=== PATIENT | female | born 1980 | race Caucasian/White ===

== ENCOUNTER 2017-06-22 10:34 | Inpatient (IN) | payer OTHER, SELFPAY ==
--- OUTSIDE RECORDS SUMMARY | 2017-06-22 10:37 | XMS | Clinical Summary ---
:1980 Author Organization [facility] Address [address] [place] [address] Phone Care Team Providers Name Role Phone , Primary Care Provider Unavailable Allergies No Known Allergies Current Medications Not on file Active Problems Not on file Social History Tobacco Use Types Packs/Day Years Used Date Never Assessed Sex Assigned at Date Recorded Not on file Last Filed Vital Signs Vital Sign Reading Time Taken Blood Pressure 132/61 12/09/2016 3:29 PM [employer]FACE [employer] OUT TECHNICIAN Pulse 72 12/09/2016 3:29 PM SURFACE LAY OUT TECHNICIAN Temperature 36.7 C (98 F) 12/09/2016 3:29 PM SURFACE LAY OUT TECHNICIAN Respiratory Rate 16 12/09/2016 3:29 PM SURFACE LAY OUT TECHNICIAN Oxygen Saturation 98% 12/09/2016 3:29 PM SURFACE LAY OUT TECHNICIAN Inhaled Oxygen Concentration - - Weight 122.5 kg (270 lb) 12/09/2016 3:29 PM SURFACE LAY OUT TECHNICIAN Height 175.3 cm (5' 9.02") 12/09/2016 3:29 PM SURFACE LAY OUT TECHNICIAN Body Mass Index 39.85 12/09/2016 3:29 PM SURFACE LAY OUT TECHNICIAN Plan of Treatment Not on file Results Not on filefrom Last 3 Months
[2017-06-22 11:14] LABS: #Basophils 0.1 thou/uL (0.0-0.2); #Eosinphils 0.2 thou/uL (0.0-0.7); #Lymphocytes 2.2 thou/uL (1.20-3.40); #Monocytes 0.6 thou/uL (0.11-0.59); #Neutrophils 6.3 thou/uL (1.40-6.50); %Basophils 0.7 % (0.0-1.0); %Eosinophils 2.3 % (0.0-10.0); %Lymphocytes 23.2 % (21.0-51.0); %Monocytes 6.6 % (0.0-10.0); Hematocrit 41.3 % (36.0-47.0); Mean Platelet Volume 7.7 fL (7.4-10.4); Red Blood Cell (RBC) Count 4.64 mill/uL (4.20-5.40); White Blood Cell (WBC) Count 9.4 thou/uL (4.8-10.8)
--- NOTE | 2017-06-22 11:24 | RAD ---
PORTABLE AP CHEST X-RAY 06/22/2017 HISTORY: Chest pain. Recent surgery on left foot on June 01, 2017. The patient was diagnosed recently with DVT in the right lower extremity, as well as a pulmonary embolus. COMPARISON: 06/17/2017 FINDINGS: The cardiac silhouette and pulmonary vasculature are within normal limits. Linear densities are see n at the medial right lung base, which may be related to superimposition of structures or possibly a telectasis. The lungs are otherwise clear. No other interval change from the prior exam. IMPRESSION: No acute cardiopulmonary process. POS: [facility]
[2017-06-22 11:38] LABS: Troponin I Less than 0.010 ng/mL (< 0.028)
[2017-06-22 11:43] LABS: ALT (SGPT) 17 U/L (8-55); AST (SGOT) 13 U/L (5-34); Alkaline Phosphatase 73 U/L (40-150); Anion Gap 11 mmol/L (10-20); BUN (Urea Nitrogen) 12 mg/dL (7.0-18.7); Bilirubin, Total 0.4 mg/dL (0.2-1.2); Calc. Creatinine Clearance 0 mL/min (70-130); Calcium 9.2 mg/dL (7.8-10.44); Carbon Dioxide 22 mmol/L (22-29); Chloride 107 mmol/L (98-107); Estimated GFR-MDRD 88; Protein, Total 6.8 g/dL (6.0-8.3)
[2017-06-22] MEDS ORDERED: Morphine 4 MG/ML Carpuject ONE (12:21)
[2017-06-22] MEDS ORDERED: Enoxaparin Sodium 100 MG/ML SYRINGE ONE (12:21)
[2017-06-22] MEDS ORDERED: Pepto Bismol Chew TAB PO PRN (13:10)
[2017-06-22] MEDS ORDERED: Acetaminophen 325 MG TAB PO PRN (13:10)
[2017-06-22] MEDS ORDERED: Milk Of Magnesia 30 ML UDCUP PO PRN (13:10)
--- NOTE | 2017-06-22 13:46 | PDOC.EVN ---
Event Note - Event Note Event Note: Admission/Discharge (ALL IN ONE NOTE, PATIENT WAS ADMITTED AND DISCHARGED FROM THE [facility] [id number]
--- NOTE | 2017-06-22 14:00 | CON ---
DATE OF CONSULTATION: 06/22/2017 CONSULTING PHYSICIAN: Emergency room physician. I was asked to see Ms. Lancaster regarding hemoptysis. She is a 37-year-old female, who was hospitalized last week with a massive pulmonary embolism on both sides. She was anticoagulated with Xarelto and discharged over the weekend. Over the last 36 hours, she has developed some hemoptysis, which she c haracterizes as regular sputum production mixed with some blood. None of this hemoptysis has been m assive. She has also developed some pleuritic chest pain. The pain from her left lower extremity D VT has resolved. She is currently taking Xarelto a dose of 15 mg twice daily, which is to complete 21 days before tra nsitioning to the 20 mg daily dose. She is taking Lortab for pain. PHYSICAL EXAMINATION: VITAL SIGNS: Her O2 sat was 98% on room air, blood pressure was 120/70, respiratory rate 18. She w as in no acute distress. HEENT: Unremarkable. NECK: Without adenopathy or JVD. LUNGS: Clear. CARDIAC: S1, S2, is regular, without murmur. ABDOMEN: Soft, nontender. EXTREMITIES: No edema. LABORATORY DATA AND X-RAY FINDINGS: Her chest x-ray showed no mass, effusion or infiltrate. Her CB C and BMP were normal except for slightly elevated glucose. ASSESSMENT: Hemoptysis - this would be expected after a major pulmonary embolism. There is no reas on to discontinue her anticoagulation at this time. She was told to come back to the emergency room if she ever had massive hemoptysis. PLAN: She has an appointment to see me in the office in 2 days. I told her to continue the current Xarelto dose. For pleuritic chest pain, she is being prescribed a Medrol Dosepak and nonsteroidal anti-inflammatory medication by the Hospitalist.
[2017-06-22] MEDS ORDERED: Rivaroxaban 15 MG TAB PO SCH (17:00)
--- NOTE | 2017-06-22 20:31 | HP ---
HISTORY AND PHYSICAL AND DISCHARGE SUMMARY DATE OF ADMISSION AND DISCHARGE: 06/22/2017 CHIEF COMPLAINT: Shortness of breath. HISTORY OF PRESENT ILLNESS: This is a 37-year-old female who was recently diagnosed with DVT/PE, on hospitalization from 06/17/2017 to 06/19/2017 and sent home on Xarelto, who presents with shortness of breath. The patient was seen by Dr. Frost last time and I did discuss the case with Dr. Elsie chowdhury in the patient's room while she was in the emergency room. We felt that the patient was over exe rting herself which was causing an exacerbation of her underlying pleuritic chest pain and shortness of breath. The patient denied any fevers, chills or new rashes. REVIEW OF SYSTEMS: A 14 point review of systems is negative except as otherwise indicated above in the HPI. PAST MEDICAL HISTORY: DVT/PE, recently placed on Xarelto as above. PAST SURGICAL HISTORY: 1. Left ankle fracture on 05/11/2016 status post multiple surgeries. 2. Appendectomy. 3. Cholecystectomy. 4. Tubal ligation. 5. Bilateral knee surgery for meniscal tear. 6. Adenoidectomy. FAMILY HISTORY: Positive for diabetes, COPD, rheumatoid arthritis and lupus. SOCIAL HISTORY: The patient denies any tobacco, alcohol or illicit drug use recently. ALLERGIES AND MEDICATIONS: Please refer the chart for details These have been reviewed. PHYSICAL EXAMINATION: VITAL SIGNS: Reviewed, please refer to chart for details. GENERAL: Patient was sitting up in bed when I entered the room in no acute distress in terms of her breathing. HEENT: Normocephalic, atraumatic. NECK: Supple, no rigidity. LYMPH NODES: No cervical or supraclavicular lymphadenopathy. CARDIOVASCULAR: S1 and S2 are audible with regular rate and rhythm. LUNGS: Clear to auscultation bilaterally with no wheezes, rales or rhonchi. ABDOMEN: Soft, nontender, obese, positive bowel sounds. No guarding, rebound or rigidity. : No CVA tenderness bilaterally. No suprapubic tenderness either. MUSCULOSKELETAL: No calf tenderness bilaterally. EXTREMITIES: No clubbing, cyanosis or edema of the extremities. PSYCHIATRIC: Appropriate, and cooperative. NEUROLOGIC: Alert and oriented x3, answering questions appropriately with judgment intact. SKIN: Warm, dry with moist mucous membranes. ASSESSMENT AND PLAN: This is a 37-year-old female who is presenting with pleuritic chest pain. Pleuritic chest pain secondary to overexertion in the setting of known pulmonary emboli. I discusse d the case in detail with Dr. Frost and the patient with her family at the bedside. She will go h ome today and instead of the [place], we will prescribe ibuprofen and a Medrol Dose Pack as her chest pain and shortness of breath are likely exacerbated by pleurisy from overexertion and deep breathing . The patient and steam drier tender are in agreement with this plan. She will be discharged home to [facility] with outpatient Pulmonology. I will prescribe ibuprofen and Medrol Dose Pack.
--- NOTE | 2017-07-24 18:42 | EKG ---
Test Reason : Blood Pressure : / mmHG Vent. Rate : 087 BPM Atrial Rate : 087 BPM P-R Int : 158 ms QRS Dur : 088 ms QT Int : 378 ms P-R-T Axes : 060 023 028 degrees QTc Int : 454 ms Normal sinus rhythm Nonspecific T wave abnormality S1 Q3 T3 Abnormal ECG Confirmed by CYRUS GALINDO D.O. ([id number]), managing editor MARTHA HERNANDEZ ([id number]) on 07/24/2017 6:42:10 PM Referred By: Confirmed By:CYRUS GALINDO D.O.
== END 2017-06-22 14:50 | disposition home or self-care (01) | DRG 193 ==
LOC: ERS 10:34 → ERHOLD 13:03
PROVIDERS: ADMIT Hospitalist; ATTEND Hospitalist
DX: R09.1 Pleurisy (principal); I26.99 Other pulmonary embolism without acute cor pulmonale; R04.2 Hemoptysis; I82.402 Acute embolism and thrombosis of unspecified deep veins of left lower extremity; X50.9XXA Other and unspecified overexertion or strenuous movements or postures, initial encounter; Z79.02 Long term (current) use of antithrombotics/antiplatelets
CPT/HCPCS: 36415; 71010; 80053; 82553; 84484; 85025; 85379; 93005; 96372; 96374; J1650; J2270

== ENCOUNTER 2017-08-06 12:45 | Outpatient (CLI) | payer OTHER ==
--- NOTE | 2017-08-06 16:21 | ULT ---
LEFT LOWER EXTREMITY VENOUS DUPLEX SONOGRAM 08/06/17 HISTORY: DVT left leg. Followup. COMPARISON: 06/17/17. FINDINGS: Internal echoes and lack of compressibility are again demonstrated within the left popliteal vein. G ood color and spectral doppler flow are present within the common femoral vein and greater saphenous junction and within the femoral and deep femoral veins. Posterior tibial vein also shows good flow. IMPRESSION: DVT confined to the left popliteal vein is similar in appearance to the prior study from 06/17/17. POS: [facility]
--- NOTE | 2017-08-06 16:34 | CT ---
CONTRAST ENHANCED CTA CHEST 08/06/17 Comparison made to previous exam from 06/17/17. HISTORY: 37-year-old who has known history of pulmonary embolus on blood thinners. Presents with history of c hest pain and cough. Contrast enhanced CTA of the chest is performed with 2D and 3D reconstructed images performed. There is a small left distal main pulmonary artery embolus with a filling defect. This is significan tly reduced in size compared to the previous comparison CTA. No other significant pulmonary emboli s een. There appears to be an area of small pulmonary parenchymal scarring in the left lower lobe. No significant evidence of lymphadenopathy seen. The patient has had a previous cholecystectomy. A granuloma is seen in the posterior aspect of the l iver. IMPRESSION: 1. Small residual pulmonary embolus, significantly smaller than on previous comparison CTA arturo st images. 2. Small area of scarring in the left lower lobe of the lung. POS: [facility]
== END 2017-08-06 12:46 | disposition home or self-care (01) ==
LOC: ULT 12:45
PROVIDERS: ATTEND Family Medicine
DX: S92.352G Displaced fracture of fifth metatarsal bone, left foot, subsequent encounter for fracture with delayed healing (principal); S43.92XD Sprain of unspecified parts of left shoulder girdle, subsequent encounter; S14.3XXD Injury of brachial plexus, subsequent encounter; I26.99 Other pulmonary embolism without acute cor pulmonale; I07.1 Rheumatic tricuspid insufficiency; I37.1 Nonrheumatic pulmonary valve insufficiency; I82.432 Acute embolism and thrombosis of left popliteal vein
CPT/HCPCS: 71275; 93306

== ENCOUNTER 2017-12-17 21:33 | Emergency (ER) | payer SELFPAY ==
[2017-12-17] MEDS ORDERED: traMADol HCl 50 MG TAB ONE (22:53)
--- NOTE | 2017-12-17 23:31 | ULT ---
ULTRASOUND WITH DOPPLER DUPLEX VENOUS LOWER EXTREMITY LEFT 12/17/17 CPT: 53935 ICD-10-PCS: B54D HISTORY: Pain, erythema and edema. TECHNIQUE: Color flow Doppler, spectral waveform analysis of pulsed Doppler, and alva-scale imaging with william hailey and augmentation, were used to evaluate the left common femoral, femoral, popliteal, posterior t ibial, and superficial femoral, veins; and the proximal portions of the profunda femoral and greater saphenous, veins. FINDINGS: Appropriate compressibility and flow within the imaged deep vein system of the left lower extremity. IMPRESSION: No DVT. POS: [facility]
--- NOTE | 2017-12-25 17:46 | EKG ---
Test Reason : Blood Pressure : / mmHG Vent. Rate : 083 BPM Atrial Rate : 083 BPM P-R Int : 162 ms QRS Dur : 086 ms QT Int : 380 ms P-R-T Axes : 048 023 038 degrees QTc Int : 446 ms Normal sinus rhythm Normal ECG Confirmed by MARIO HENNING, HARINI ([id number]), society editor MARTHA HERNANDEZ ([id number]) on 12/25/2017 5:45:57 PM Referred By: Confirmed By:HARINI MARTIN MD
== END 2017-12-17 23:05 | disposition home or self-care (01) ==
LOC: ERS 21:33
DX: M79.605 Pain in left leg (principal); E66.9 Obesity, unspecified; F32.9 Major depressive disorder, single episode, unspecified; F17.210 Nicotine dependence, cigarettes, uncomplicated; Z79.01 Long term (current) use of anticoagulants
CPT/HCPCS: 93005; 99406

== ENCOUNTER 2018-12-16 12:55 | Emergency (ER) | payer SELFPAY ==
--- NOTE | 2018-12-16 14:17 | ULT ---
LEFT LOWER EXTREMITY VENOUS DOPPLER: Date: 12/16/18 HISTORY: Lower extremity edema, pain. History of deep venous thrombosis. COMPARISON: Ultrasound from 2017 and 2018. TECHNIQUE: Real-time Posadas scale and color Doppler with spectral analysis of the left lower extremity venous sys tem was performed. The common femoral, femoral, proximal portions of greater saphenous and deep femor al veins, as well as the popliteal and posterior tibial veins were interrogated. FINDINGS: Normal flow, augmentation, and compression with a prominent valve in the left popliteal vein. IMPRESSION: 1. No deep venous thrombosis. 2. Prominent valve in the left popliteal vein. POS: [facility]
== END 2018-12-16 15:12 | disposition home or self-care (01) ==
LOC: ERS 12:55
DX: M79.662 Pain in left lower leg (principal); E66.9 Obesity, unspecified; F32.9 Major depressive disorder, single episode, unspecified; F17.210 Nicotine dependence, cigarettes, uncomplicated

== ENCOUNTER 2019-06-13 14:09 | Outpatient (CLI) | payer OTHER ==
--- NOTE | 2019-06-13 14:57 | MMO ---
Bilateral MAMMO Bilat Diag DDI+SUNNI. CLINICAL HISTORY: Patient is 39 years old and is seen for diagnostic exam. The patient has the following family history of breast cancer: maternal aunt, malignant (generic). VIEWS: The views performed were: bilateral craniocaudal with tomosynthesis; bilateral mediolateral oblique with tomosynthesis; and bilateral mediolateral with tomosynthesis. FILMS COMPARED: The present examination has been compared to prior imaging studies performed at [facility] on 11/22/2014 and 06/13/2019. MAMMOGRAM FINDINGS: There are scattered fibroglandular densities. There are no suspicious masses, calcifications or areas of architectural distortion. There are benign appearing calcifications in both breasts. There are no suspicious masses, suspicious calcifications, or new areas of architectural distortion. IMPRESSION: THERE IS NO MAMMOGRAPHIC EVIDENCE OF MALIGNANCY. A ROUTINE FOLLOW-UP MAMMOGRAM AT AGE 42 IS RECOMMENDED. THE RESULTS OF THIS EXAM WERE SENT TO THE PATIENT. ACR BI-RADS Category 2 - Benign finding MAMMOGRAPHY NOTE: 1. A negative mammogram report should not delay a biopsy if a dominant of clinically suspicious mass is present. 2. Approximately 10% to 15% of breast cancers are not detected by mammography. 3. Adenosis and dense breasts may obscure an underlying neoplasm. Reported by: DIONY MAURO MD Electonically Signed: [id number]
--- NOTE | 2019-06-13 15:07 | ULT ---
RIGHT BREAST ULTRASOUND: 06/13/19 HISTORY: Two palpable area in the right breast. COMPARISON: 11/22/14. TECHNIQUE: Targeted sonographic imaging of the right breast is performed in the region of concern. Static images are reviewed. FINDINGS: Static images of the right breast at the 1 and 9 o'clock position demonstrate normal fibroglandular t issue. Note, the 9 o'clock position was also evaluated on 2014. There is no evidence of a solid or cy stic mass. No evidence of architectural distortion or shadowing. IMPRESSION: BIRADS 2: Benign Finding(s) Routine annual screening mammography (for women over age 40). RECOMMENDATION: With regard to the palpable foci, further evaluation including additional imaging and/or biopsy can b e based upon clinical finding and/or suspicion. POS: [facility]
== END 2019-06-13 14:10 | disposition home or self-care (01) ==
LOC: BICMAMMO 14:09
PROVIDERS: ATTEND Family Medicine
DX: N63.11 Unspecified lump in the right breast, upper outer quadrant (principal)
CPT/HCPCS: 77066; G0279